=== PATIENT | female | born 1930 | race Caucasian/White ===

== ENCOUNTER 2019-08-27 01:28 | Inpatient (IN) ==
[2019-08-27 02:25] LABS: Basophils # 0.1 K/mcL (0.0-0.2); Basophils % 0.5 %; Eosinophils % 0.2 %; Hematocrit 45.8 % (35.3-44.9); Hemoglobin 14.7 g/dL (11.5-15.4); Immature Granulocytes % 0.7 % (0-4); Lymphocytes # 0.6 K/mcL (0.6-4.6); Lymphocytes % 2.8 %; Mean Corpuscular HGB Conc 32.1 g/dL (31.6-35.5); Mean Corpuscular Hemoglobin 26.2 pg (28.0-33.3); Mean Corpuscular Volume 81.6 fL (83.0-100.0); Mean Platelet Volume 11.6 fL (9.4-12.4); Monocytes # 0.7 K/mcL (0.0-1.3); Monocytes % 3.8 %; Neutrophils # 17.9 K/mcL (1.6-8.9); Platelet Count 192 K/mcL (140-400); Red Blood Count 5.61 M/mcL (3.82-4.97); Red Cell Distribution Width 14.8 % (11.5-14.5); White Blood Count 19.5 K/mcL (4.3-11.1)
[2019-08-27 02:45] LABS: BUN/Creatinine Ratio 29 (6-26); Blood Urea Nitrogen 20 mg/dL (8-23); Calcium 9.5 mg/dL (8.6-10.3); Carbon Dioxide 25 mEq/L (23-29); Chloride 102 mEq/L (98-107); Glucose 124 mg/dL (70-105); Osmolality,Calculated 288 (280-300); Potassium 3.6 mEq/L (3.5-5.1); Sodium 137 mEq/L (136-145); eGFR For African Americans > 60 (> 60); eGFR For Non-African Americans > 60 (> 60)
[2019-08-27 02:46] LABS: Troponin I 0.03 ng/mL (< 0.04)
[2019-08-27 02:59] LABS: Thyroid Stimulating Hormone 1.258 mcIU/mL (0.340-5.600)
[2019-08-27] MEDS ORDERED: 0.9 % Sodium Chloride 1,000 ML IVC ONE (03:48)
[2019-08-27 03:49] LABS: Bilirubin,Urine Negative (Negative); Blood,Urine Trace (Negative); Clarity,Urine Clear (Clear); Color,Urine Yellow (Yellow); Glucose,Urine (UA) Normal (Normal); Ketones,Urine Negative (Negative); Leukocyte Esterase,Urine Negative (Negative); Nitrite,Urine Negative (Negative); Protein,Urine Negative (Neg-Trace); Specific Gravity,Urine 1.016 (1.010-1.025); Urobilinogen,Urine Normal (Normal)
[2019-08-27] MEDS ORDERED: cefTRIAXone 1,000 MG in Water for inj. (sterile) 10 ML IVP ONE (03:50)
[2019-08-27] MEDS ORDERED: Azithromycin 500 MG in 0.9 % Sodium Chloride 250 ML IVPB ONE (03:50)
[2019-08-27 03:51] LABS: Bacteria,Urine None Seen per hpf (None-Few); Hyaline Casts,Urine None Seen per lpf (None-Few); Squamous Epithelial Cell,Urine Many per lpf (None-Few); WBC,Urine 0-3 per hpf (0-3)
[2019-08-27] MEDS ORDERED: Naloxone 0.4 MG/ML INJ IVP PRN (07:57)
[2019-08-27] MEDS ORDERED: *HR* Heparin 5,000 UNIT/ML VIAL IVP ONE (09:21)
[2019-08-27] MEDS ORDERED: *HR* Heparin 5,000 UNIT/ML VIAL IVP PRN ×2 (09:21)
[2019-08-27 09:53] LABS: INR 1.1; Prothrombin Time 12.1 Seconds (9.4-12.1)
[2019-08-27 09:56] LABS: Heparin anti-factor XA UFH 0.02 IU/mL (0.30-0.70)
[2019-08-27] MEDS: Heparin 25,000 UNIT/250 ML D5W 25,000 UNIT/250 ML IV.SOLN IVC SCH (10:49)
[2019-08-27] MEDS: Metoprolol XL (24 HR) Succ 25 MG TAB.ER.24H PO SCH (10:49)
[2019-08-27] MEDS: Nystatin POWDER 30 GM BOTTLE TP SCH ×2 (10:49→22:35)
[2019-08-27] MEDS: Furosemide 20 MG/2 ML VIAL IVP SCH ×2 (10:49→22:34)
[2019-08-27] MEDS: Aspirin Enteric Coated 81 MG Tablet PO SCH (10:49)
[2019-08-27] MEDS: Acetaminophen 325 MG TABLET PO PRN (15:31)
[2019-08-28 05:00] LABS: Basophils # 0.1 K/mcL (0.0-0.2); Basophils % 0.5 %; Eosinophils # 0.1 K/mcL (0.0-0.6); Eosinophils % 0.3 %; Hemoglobin 13.4 g/dL (11.5-15.4); Immature Granulocytes % 0.5 % (0-4); Lymphocytes % 6.1 %; Mean Corpuscular HGB Conc 31.9 g/dL (31.6-35.5); Mean Corpuscular Hemoglobin 26.1 pg (28.0-33.3); Mean Corpuscular Volume 81.9 fL (83.0-100.0); Mean Platelet Volume 11.6 fL (9.4-12.4); Monocytes # 0.8 K/mcL (0.0-1.3); Monocytes % 5.2 %; Neutrophils # 13.5 K/mcL (1.6-8.9); Platelet Count 166 K/mcL (140-400); Red Blood Count 5.13 M/mcL (3.82-4.97); Segmented Neutrophils % 87.4 %; White Blood Count 15.5 K/mcL (4.3-11.1)
[2019-08-28 05:17] LABS: Chol/HDL Ratio 2.2 (0-4.9)
[2019-08-28 05:18] LABS: BUN/Creatinine Ratio 25 (6-26); Blood Urea Nitrogen 16 mg/dL (8-23); Calcium 9.1 mg/dL (8.6-10.3); Carbon Dioxide 24 mEq/L (23-29); Chloride 104 mEq/L (98-107); Glucose 153 mg/dL (70-105); Osmolality,Calculated 288 (280-300); Potassium 3.5 mEq/L (3.5-5.1); Sodium 137 mEq/L (136-145); eGFR For African Americans > 60 (> 60); eGFR For Non-African Americans > 60 (> 60)
[2019-08-28] MEDS: Acetaminophen 325 MG TABLET PO PRN (06:22)
[2019-08-28 08:07] LABS: Estimated Average Glucose 126 mg/dl
[2019-08-28] MEDS: levoFLOXacin 750 MG/150 ML 750 MG/150 ML BAG IVPB SCH (09:57)
[2019-08-28] MEDS: Furosemide 20 MG/2 ML VIAL IVP SCH ×2 (09:58→20:43)
[2019-08-28] MEDS: Aspirin Enteric Coated 81 MG Tablet PO SCH (09:58)
[2019-08-28] MEDS: Nystatin POWDER 30 GM BOTTLE TP SCH ×2 (09:58→20:51)
[2019-08-28] MEDS: Metoprolol XL (24 HR) Succ 25 MG TAB.ER.24H PO SCH (09:58)
[2019-08-28] MEDS: Heparin 25,000 UNIT/250 ML D5W 25,000 UNIT/250 ML IV.SOLN IVC SCH (15:09)
[2019-08-28] MEDS: Latanoprost 2.5 ML BOTTLE BOTH EYES SCH (20:49)
[2019-08-29 02:09] LABS: Basophils # 0.1 K/mcL (0.0-0.2); Basophils % 0.6 %; Eosinophils # 0.1 K/mcL (0.0-0.6); Hematocrit 45.5 % (35.3-44.9); Hemoglobin 14.3 g/dL (11.5-15.4); Immature Granulocytes % 0.4 % (0-4); Lymphocytes # 1.3 K/mcL (0.6-4.6); Lymphocytes % 13.7 %; Mean Corpuscular HGB Conc 31.4 g/dL (31.6-35.5); Mean Corpuscular Hemoglobin 26.3 pg (28.0-33.3); Mean Corpuscular Volume 83.6 fL (83.0-100.0); Mean Platelet Volume 11.9 fL (9.4-12.4); Monocytes # 0.9 K/mcL (0.0-1.3); Monocytes % 9.7 %; Neutrophils # 7.1 K/mcL (1.6-8.9); Platelet Count 175 K/mcL (140-400); Red Blood Count 5.44 M/mcL (3.82-4.97); Segmented Neutrophils % 74.6 %; White Blood Count 9.5 K/mcL (4.3-11.1)
[2019-08-29 02:28] LABS: BUN/Creatinine Ratio 23 (6-26); Blood Urea Nitrogen 15 mg/dL (8-23); Calcium 9.1 mg/dL (8.6-10.3); Carbon Dioxide 25 mEq/L (23-29); Chloride 105 mEq/L (98-107); Glucose 106 mg/dL (70-105); Magnesium 2.1 mg/dL (1.6-2.6); Osmolality,Calculated 287 (280-300); Potassium 3.7 mEq/L (3.5-5.1); Sodium 138 mEq/L (136-145); eGFR For African Americans > 60 (> 60); eGFR For Non-African Americans > 60 (> 60)
[2019-08-29] MEDS: Metoprolol XL (24 HR) Succ 25 MG TAB.ER.24H PO SCH (08:10)
[2019-08-29] MEDS: Furosemide 20 MG/2 ML VIAL IVP SCH (08:10)
[2019-08-29] MEDS: Aspirin Enteric Coated 81 MG Tablet PO SCH (08:10)
[2019-08-29] MEDS: Nystatin POWDER 30 GM BOTTLE TP SCH ×2 (08:11→21:23)
[2019-08-29] MEDS ORDERED: Apixaban 5 MG TABLET PO SCH (09:00)
[2019-08-29] MEDS ORDERED: *HR* Enoxaparin 100 MG/ML SYRINGE SQ SCH (09:00)
[2019-08-29] MEDS: Apixaban 5 MG TABLET PO SCH ×2 (11:38→21:19)
[2019-08-29] MEDS: Latanoprost 2.5 ML BOTTLE BOTH EYES SCH (21:21)
[2019-08-30 01:59] LABS: Basophils # 0.1 K/mcL (0.0-0.2); Basophils % 0.8 %; Eosinophils # 0.1 K/mcL (0.0-0.6); Eosinophils % 1.4 %; Hematocrit 44.6 % (35.3-44.9); Hemoglobin 14.1 g/dL (11.5-15.4); Immature Granulocytes % 0.3 % (0-4); Lymphocytes # 1.2 K/mcL (0.6-4.6); Lymphocytes % 15.4 %; Mean Corpuscular HGB Conc 31.6 g/dL (31.6-35.5); Mean Corpuscular Hemoglobin 26.4 pg (28.0-33.3); Mean Corpuscular Volume 83.4 fL (83.0-100.0); Mean Platelet Volume 11.2 fL (9.4-12.4); Monocytes # 0.8 K/mcL (0.0-1.3); Monocytes % 9.6 %; Neutrophils # 5.7 K/mcL (1.6-8.9); Platelet Count 195 K/mcL (140-400); Red Blood Count 5.35 M/mcL (3.82-4.97); Red Cell Distribution Width 14.7 % (11.5-14.5); Segmented Neutrophils % 72.5 %; White Blood Count 7.8 K/mcL (4.3-11.1)
[2019-08-30 02:21] LABS: BUN/Creatinine Ratio 34 (6-26); Blood Urea Nitrogen 23 mg/dL (8-23); Carbon Dioxide 23 mEq/L (23-29); Chloride 105 mEq/L (98-107); Glucose 104 mg/dL (70-105); Potassium 3.9 mEq/L (3.5-5.1); Sodium 138 mEq/L (136-145); eGFR For African Americans > 60 (> 60); eGFR For Non-African Americans > 60 (> 60)
[2019-08-30 02:22] LABS: Osmolality,Calculated 290 (280-300)
[2019-08-30] MEDS: Metoprolol XL (24 HR) Succ 50 MG TAB.ER.24H PO SCH (10:05)
[2019-08-30] MEDS: Aspirin Enteric Coated 81 MG Tablet PO SCH (10:05)
[2019-08-30] MEDS: Furosemide 40 MG TABLET PO SCH (10:05)
[2019-08-30] MEDS: amLODIPine 5 MG TABLET PO SCH (10:05)
[2019-08-30] MEDS: Apixaban 5 MG TABLET PO SCH ×2 (10:05→19:52)
[2019-08-30] MEDS: levoFLOXacin 750 MG/150 ML 750 MG/150 ML BAG IVPB SCH (10:05)
[2019-08-30] MEDS: Acetaminophen 325 MG TABLET PO PRN (10:11)
[2019-08-30] MEDS: Nystatin POWDER 30 GM BOTTLE TP SCH ×2 (10:17→19:54)
[2019-08-30] MEDS: Latanoprost 2.5 ML BOTTLE BOTH EYES SCH (21:00)
[2019-08-31 07:16] VITALS: BP 141/71
[2019-08-31] MEDS: Metoprolol XL (24 HR) Succ 50 MG TAB.ER.24H PO SCH (09:50)
[2019-08-31] MEDS: Aspirin Enteric Coated 81 MG Tablet PO SCH (09:50)
[2019-08-31] MEDS: Furosemide 40 MG TABLET PO SCH (09:50)
[2019-08-31] MEDS: amLODIPine 5 MG TABLET PO SCH (09:50)
[2019-08-31] MEDS: Apixaban 5 MG TABLET PO SCH (09:50)
[2019-08-31] MEDS: Nystatin POWDER 30 GM BOTTLE TP SCH (09:56)
[2019-08-31] MEDS: Acetaminophen 325 MG TABLET PO PRN (12:11)
== END 2019-08-31 12:53 | disposition home or self-care (01) | DRG 308 ==
LOC: 2NENU 01:28 → EMEROOARM 01:28 → SUATTDRO 04:04 → 2NENU 04:35
PROVIDERS: ADMIT Internal Medicine; ATTEND Internal Medicine